=== PATIENT | male | born 1960 | race Caucasian/White ===

== ENCOUNTER → 2022-02-03 00:23 | Outpatient (CLI) | payer BC, SELFPAY ==
[2022-02-03 11:13] LABS: SARS-CoV-2 RNA PCR Negative
== END ==
PROVIDERS: PCP Family Medicine; Visit Provider Internal Medicine Gastroenterology
DX: Z01.812 Encounter for preprocedural laboratory examination (principal); Z20.822 Contact with and (suspected) exposure to COVID-19
CPT/HCPCS: C9803; U0003; U0005

== ENCOUNTER 2022-02-06 00:58 | Day surgery (SDC) | payer BC, SELFPAY ==
[2022-01-27 14:27] VITALS: BMI 28.0
[2022-02-06 11:07] VITALS: BP 162/86; PULSE 92; RESP 16; TEMP 36.4; O2SAT 97; BMI 27.1
[2022-02-06] MEDS: LACTATED RINGERS 1,000 ML 150 ML IV CONT (11:09)
[2022-02-06 11:20] LABS: Glucose Point of Care 186 mg/dl (65-105)
--- NOTE | 2022-02-06 12:22 | PM.HPGS ---
History of Present Illness History of Present Illness Consent: Risks, benefits, and alternatives have been discussed and questions answered. Patient agrees to proceed with procedure. Chief complaint: GERD, neoplasm screening Narrative: Serjio Bean is a 61 year old male whot has been suffering from a cough for about 3 years. He has been his primary care physician's office several times. He thought that he had a problem with his lung but states that he has never had x-rays. He says that he coughs throughout the day but particularly after meals. Sometimes he will wake up coughing at night but not as often as he coughs during the day; it is not productive cough. He is not a smoker. Patient denies shortness of breath. He has been treated for acid reflux with omeprazole for the past couple of years. He was told that his cough was very likely due to acid reflux. He believes however that omeprazole has actually made his symptoms worse. He talked to a friend who advised him to get Prilosec [id number]. He has been taking that for a couple of months and thinks that his symptoms are better. I pointed out to him that Prilosec is the same as omeprazole which he was taking. He denies dysphagia, denies nausea, vomiting, weight loss or other gastrointestinal symptoms. He has had no change in bowel habits or blood in the stools. He did have a colonoscopy about 11 years ago since for screening. Review of Systems Review of Systems: All systems reviewed & are unremarkable except as noted in HPI and below PMFSH Family History Family History Father Diabetes mellitus Hypertension Heart disease Social History Social History Years smoked: 10 Smoking status: Former smoker Smoking end date: 03/03/89 Alcohol intake: current Alcohol use details: weekends Substance use: never Meds Home Medications and Allergies Home Medications Medication Instructions Recorded Confirmed Type atorvastatin 20 mg tablet 20 mg PO DAILY 01/13/22 02/06/22 History canagliflozin 300 mg tablet 100 mg PO DAILY tablet 01/13/22 02/06/22 History insulin glargine 100 unit/mL (3 20 unit SUBCUT BID 01/13/22 02/06/22 History mL) subcutaneous pen losartan 50 mg tablet 50 mg PO DAILY 01/13/22 02/06/22 History metformin 1,000 mg tablet 1,000 mg PO DAILY 01/13/22 02/06/22 History omeprazole 20 mg capsule,delayed 20 mg PO DAILY 01/13/22 02/06/22 History release omeprazole magnesium 20 mg 20 mg PO DAILY 01/13/22 02/06/22 History tablet,delayed release Allergies Allergy/AdvReac Type Severity Reaction Status Date / Time No Known Allergies Allergy Verified 02/06/22 11:05 Vital Signs Vital Signs - 24 hr 02/06/22 11:07 Temperature 36.4 C Pulse Rate 92 Respiratory Rate 16 Blood Pressure 162/86 H Pulse Oximetry 97 Exam Const: General: alert Orientation/consciousness: patient oriented x3 Resp: Auscultation: clear to auscultation bilaterally Cardio: Rhythm: regular rhythm GI: GI Palp: Yes Soft to palpation and No Tenderness to palpation present (GI) Neuro: General: patient oriented x3 Assessment and Plan Assessment and plan (1) GERD (gastroesophageal reflux disease): Code(s): K21.9 - Gastro-esophageal reflux disease without esophagitis Status: Acute Assessment and Plan: EGD with possible biopsy or dilatation or cautery. (2) Colon cancer screening: Code(s): Z12.11 - Encounter for screening for malignant neoplasm of colon Status: Acute Assessment and Plan: Colonoscopy with possible biopsy or polypectomy or cautery or injection of substances.
--- NOTE | 2022-02-06 12:34 | WPDANESEPPF ---
Anes - Initial Pre Proc Eval Procedure: Operation Date: 02/06/22 12:30 Proposed Procedures p Esophagogastroduodenoscopy & Screening Colonoscopy - Jhoan Marcial MD Date/Time: 02/06/22 12:34 Surgeon: Jhoan Marcial MD Pre Op Diagnosis: GERD, neoplasm screening Patient Data Age: 61 Gender: M Height: 1.78 m Weight: 86 kg Last Vital Signs Temp 36.4 C 02/06/22 11:07 Pulse 92 02/06/22 11:07 Resp 16 02/06/22 11:07 BP 162/86 H 02/06/22 11:07 Pulse Ox 97 02/06/22 11:07 Allergies Allergy/AdvReac Type Severity Reaction Status Date / Time No Known Allergies Allergy Verified 02/06/22 11:05 Home Medications Medication Instructions Recorded Confirmed Type atorvastatin 20 mg tablet 20 mg PO DAILY 01/13/22 02/06/22 History canagliflozin 300 mg tablet 100 mg PO DAILY tablet 01/13/22 02/06/22 History insulin glargine 100 unit/mL (3 20 unit SUBCUT BID 01/13/22 02/06/22 History mL) subcutaneous pen losartan 50 mg tablet 50 mg PO DAILY 01/13/22 02/06/22 History metformin 1,000 mg tablet 1,000 mg PO DAILY 01/13/22 02/06/22 History omeprazole 20 mg capsule,delayed 20 mg PO DAILY 01/13/22 02/06/22 History release omeprazole magnesium 20 mg 20 mg PO DAILY 01/13/22 02/06/22 History tablet,delayed release Laboratory Tests 02/06/22 11:16 POC Capillary Glucose 186 mg/dl H mg/dl (65-105) Patient hx anesthesia problems: none Family hx anesthesia problems: none Results Review: All pre-operative results and documents have been reviewed as part of the pre-operative evaluation. [facility] Past Medical History Medical History (Updated 02/06/22 @ 12:35 by Jone Sanford MD) HTN (hypertension) Hyperlipidemia Surgical History Surgical History (Updated 02/06/22 @ 12:37 by Jone Sanford MD) H/O inguinal hernia repair History of ankle surgery History of shoulder surgery Family History Family History Father Diabetes mellitus Hypertension Heart disease Social History Social History Years smoked: 10 Smoking status: Former smoker Smoking end date: 03/03/89 Alcohol intake: current Alcohol use details: weekends Substance use: never Anes - Eval Final PreProcedure Day of Procedure 02/06/22 12:34 Patient weight: overweight Heart: regular rate and rhythm Lungs: clear to auscultation Airway: Mallampati scale class II Neurological: alert and oriented Last oral intake: >/= 8 hours ASA classification: III Emergent: no Anesthetic plan: proceed Anesthesia type and monitoring: general GIVS and standard monitoring Results Review: All pre-operative results and documents have been reviewed as part of the pre-operative evaluation. Informed Consent: The patient's anesthetic plan and its attendant risks and benefits were discussed with the patient/family/POA. Questions were solicited and answers provided to the satisfaction of the patient/family/POA.
[2022-02-06 13:36] VITALS: BP 103/67; PULSE 102; RESP 17; O2SAT 92
[2022-02-06 13:46] VITALS: BP 103/68; PULSE 100; RESP 23; O2SAT 92
[2022-02-06 13:56] VITALS: BP 121/76; PULSE 89; RESP 19; O2SAT 97
[2022-02-06 14:07] LABS: Glucose Point of Care 147 mg/dl (65-105)
== END 2022-02-06 14:13 | disposition home or self-care (01) ==
PROVIDERS: PCP Family Medicine; Visit Provider Internal Medicine Gastroenterology
PROC: 0DJ08ZZ Inspection of Upper Intestinal Tract, Via Natural or Artificial Opening Endoscopic (ICD-10-PCS; CPT 43235; principal; 2022-02-06 12:30)
DX: Z12.11 Encounter for screening for malignant neoplasm of colon (principal); K21.9 Gastro-esophageal reflux disease without esophagitis; I10 Essential (primary) hypertension; E78.5 Hyperlipidemia, unspecified; Z87.891 Personal history of nicotine dependence; Z79.4 Long term (current) use of insulin; Z79.84 Long term (current) use of oral hypoglycemic drugs
CPT/HCPCS: 45378; 43239; 82948; 87081; 88305; J2001; J2704; J7120